=== PATIENT | female | born 1985 | race Caucasian/White ===

== ENCOUNTER 2018-07-12 21:29 | Emergency (ER) | payer MEDICAID ==
[~2018-07-12] VITALS: Ht 160 cm; Wt 63.5 kg
[2018-07-12 21:36] VITALS: Ht 160 cm; Wt 63.5 kg
[2018-07-13 01:00] VITALS: BP 123/89
== END 2018-07-13 01:00 | disposition home or self-care (01) ==
LOC: ED 21:29
DX: F07.81 Postconcussional syndrome (principal); S00.83XA Contusion of other part of head, initial encounter; Y04.0XXA Assault by unarmed brawl or fight, initial encounter; Y93.89 Activity, other specified; Y92.89 Other specified places as the place of occurrence of the external cause; Y99.8 Other external cause status
CPT/HCPCS: J1885

== ENCOUNTER 2019-07-01 17:24 | Emergency (ER) | payer OTHER ==
[~2019-07-01] VITALS: Ht 154.9 cm; Wt 81.2 kg
[2019-07-01 17:29] VITALS: Ht 154.9 cm; Wt 81.2 kg
[2019-07-01 19:58] VITALS: BP 175/80
== END 2019-07-01 19:58 | disposition home or self-care (01) ==
LOC: ED 17:24
DX: S60.051A Contusion of right little finger without damage to nail, initial encounter (principal); X50.0XXA Overexertion from strenuous movement or load, initial encounter; Y93.89 Activity, other specified; Y92.89 Other specified places as the place of occurrence of the external cause; Y99.8 Other external cause status

== ENCOUNTER 2019-11-17 18:56 | Emergency (ER) | payer OTHER ==
[~2019-11-17] VITALS: Ht 147.3 cm; Wt 79.9 kg
[2019-11-17 19:05] VITALS: Ht 147.3 cm; Wt 79.9 kg
[2019-11-17 19:55] VITALS: BP 135/92
== END 2019-11-17 19:55 | disposition home or self-care (01) ==
LOC: ED 18:56
DX: H10.13 Acute atopic conjunctivitis, bilateral (principal); J34.89 Other specified disorders of nose and nasal sinuses

== ENCOUNTER 2019-11-21 21:42 | Emergency (ER) | payer OTHER ==
[~2019-11-21] VITALS: Ht 152.4 cm; Wt 80.3 kg
[2019-11-21 21:46] VITALS: Ht 152.4 cm; Wt 80.3 kg
[2019-11-21 23:11] VITALS: BP 115/76
== END 2019-11-21 23:11 | disposition home or self-care (01) ==
LOC: ED 21:42
DX: H10.33 Unspecified acute conjunctivitis, bilateral (principal)